=== PATIENT | female | born 1940 | race Caucasian/White ===

== ENCOUNTER 2016-04-14 14:42 | Emergency (ER) | payer MEDICARE ==
[~2016-04-14] VITALS: Ht 162.6 cm; Wt 60.0 kg
[~2016-04-14 14:42] MED LIST: ALEV220T14 PO; BACT2OIN TOP; CEPH500T PO; GALA4 PO; LISI-363 PO; MEVA40TA6 PO; NAME10TA PO; SERT50 PO; SYNT25TA PO
[2016-04-14 14:53] VITALS: BP 121/61; PULSE 74; RESP 16; TEMP 98.4; O2SAT 96
--- NOTE | 2016-04-14 15:26 | PD ---
HPI Chief Complaint: Fall Time Seen by Provider: 15:10 Travel History International Travel<30 days: No Contact w/Intl Traveler<30days: No Traveled to known affect area: No History of Present Illness HPI Patient is a 75-year-old female who was brought to emergency department for evaluation of a laceration to her right eyebrow. Patient sustained a mechanical fall at home prior to arrival. Daughter states that she was sitting on an ottoman that was broken, the ottoman gave out causing patient to fall forward striking her head on a wood floor. She was wearing glasses at the time and the frame of the glasses broke when she fell. She has a history of dementia and is a poor historian. Per daughter's report she had no loss of consciousness, however the daughter was in the other room when patient fell. Patient denies any pain at this time. Patient takes naproxen twice daily consistently. She is not on any other blood thinners. PFSH Past Medical History Anxiety: Yes Depression: Yes Cancer: Yes (SKIN) High Cholesterol: Yes Dementia: Yes Diabetes: No Diminished Hearing: No Glaucoma: No Hepatitis: No Hiatal Hernia: No Hypertension: Yes Respiratory: No Thyroid Disease: No Triglycerides - High: Yes ?: Not Menopausal: Yes Past Surgical History Eye Surgery: Yes (CATERACT) Genitourinary Surgery: Yes (BLADDER SUSPENSION) Gynecologic Surgery: Yes (HYSTERECTOMY) Hysterectomy: Yes Neurologic Surgery: Yes (ANTERIOR CERVICAL FUSION WITH PLATE) Pacemaker: No Other Surgery: Yes (LUMBAR LAMINECTOMY WITH FUSION SHAN AND CAGE) Family History Family Hypercholesterolemia: Yes Social History Alcohol Use: Yes (WINE RARELY) Tobacco Use: No Substance Use: No Allergies-Medications (Allergen,Severity, Reaction): Coded Allergies: No Known Allergies (Verified , 04/14/16) Reported Meds & Prescriptions Reported Meds & Active Scripts Active Reported Naproxen 250 Mg Tab 250 Mg PO BID Memantine 10 Mg Tab 10 Mg PO BID Lisinopril 20 Mg Tab 20 Mg PO BID Levothyroxine (Levothyroxine Sodium) 25 Mcg Tab 25 Mcg PO DAILY Galantamine (Galantamine Hydrobromide) 4 Mg Tab 4 Mg PO BID Sertraline (Sertraline HCl) 100 Mg Tab 100 Mg PO DAILY Lovastatin 40 Mg Tab 40 Mg PO HS Review of Systems Except as stated in HPI: all other systems reviewed are Neg Skin: Positive Other (laceration to right eyebrow) Physical Exam Narrative GENERAL: Well-developed, well-nourished, alert elderly female. Resting comfortably in no acute distress. SKIN: Warm and dry. HEAD: Atraumatic. Normocephalic. EYES: Right pupil is 2 mm left pupil is 1 mm, and reactive. No scleral icterus. No injection or drainage. Extraocular movements are intact. ENT: No nasal bleeding or discharge. Mucous membranes pink and moist. MOUTH: Mucous membranes moist, no lesions, tongue and gums appear normal. NECK: Trachea midline. No JVD. CARDIOVASCULAR: Regular rate and rhythm. No murmur appreciated. RESPIRATORY: No accessory muscle use. Clear to auscultation. Breath sounds equal bilaterally. GASTROINTESTINAL: Abdomen soft, non-tender, nondistended. Hepatic and splenic margins not palpable. MUSCULOSKELETAL: No obvious deformities. No clubbing. No cyanosis. No edema. NEUROLOGICAL: Awake and alert. No obvious cranial nerve deficits. Tongue deviates to the right. Motor grossly within normal limits. Normal speech. PSYCHIATRIC: Appropriate mood and affect; insight and judgment impaired. Data Data Last Documented VS Vital Signs Date Time Temp Pulse Resp B/P Pulse Ox O2 Delivery O2 Flow Rate FiO2 04/14/16 16:01 69 16 94/63 94 Room Air 04/14/16 14:[address] Brain W/O Iv Contrast(Rout) (04/14/16 ) Lidocaine 1% Inj (50 Ml) (Xylocaine 1% I (04/14/16 15:30) Act Partial Throm Time (Ptt) (04/14/16 15:17) Prothrombin Time / Inr (Pt) (04/14/16 15:17) Complete Blood Count With Diff (04/14/16 15:17) Basic Metabolic Panel (Bmp) (04/14/16 15:17) Iv Access Insert/Monitor (04/14/16 15:17) Labs Laboratory Tests Test 04/14/16 15:30 White Blood Count 7.6 TH/MM3 Red Blood Count 4.28 MIL/MM3 Hemoglobin 13.8 GM/DL Hematocrit 39.3 % Mean Corpuscular Volume 91.8 FL Mean Corpuscular Hemoglobin 32.1 PG Mean Corpuscular Hemoglobin 35.0 % Concent Red Cell Distribution Width 12.1 % Platelet Count 178 TH/MM3 Mean Platelet Volume 9.4 FL Neutrophils (%) (Auto) 71.0 % Lymphocytes (%) (Auto) 21.9 % Monocytes (%) (Auto) 4.4 % Eosinophils (%) (Auto) 1.5 % Basophils (%) (Auto) 1.2 % Neutrophils # (Auto) 5.4 TH/MM3 Lymphocytes # (Auto) 1.7 TH/MM3 Monocytes # (Auto) 0.3 TH/MM3 Eosinophils # (Auto) 0.1 TH/MM3 Basophils # (Auto) 0.1 TH/MM3 CBC Comment DIFF FINAL Differential Comment Prothrombin Time 10.7 SEC Prothromb Time International 1.0 RATIO Ratio Activated Partial 26.6 SEC Thromboplast Time Sodium Level 144 MEQ/L Potassium Level 3.8 MEQ/L Chloride Level 109 MEQ/L Carbon Dioxide Level 27.4 MEQ/L Anion Gap 8 MEQ/L Blood Urea Nitrogen 21 MG/DL Creatinine 0.92 MG/DL Estimat Glomerular Filtration 59 ML/MIN Rate Random Glucose 140 MG/DL Calcium Level 8.2 MG/DL MDM Medical Decision Making Medical Screen Exam Complete: Yes Emergency Medical Condition: Yes Interpretation(s) Laboratory Tests Test 04/14/16 15:30 White Blood Count 7.6 TH/MM3 Red Blood Count 4.28 MIL/MM3 Hemoglobin 13.8 GM/DL Hematocrit 39.3 % Mean Corpuscular Volume 91.8 FL Mean Corpuscular Hemoglobin 32.1 PG Mean Corpuscular Hemoglobin 35.0 % Concent Red Cell Distribution Width 12.1 % Platelet Count 178 TH/MM3 Mean Platelet Volume 9.4 FL Neutrophils (%) (Auto) 71.0 % Lymphocytes (%) (Auto) 21.9 % Monocytes (%) (Auto) 4.4 % Eosinophils (%) (Auto) 1.5 % Basophils (%) (Auto) 1.2 % Neutrophils # (Auto) 5.4 TH/MM3 Lymphocytes # (Auto) 1.7 TH/MM3 Monocytes # (Auto) 0.3 TH/MM3 Eosinophils # (Auto) 0.1 TH/MM3 Basophils # (Auto) 0.1 TH/MM3 CBC Comment DIFF FINAL Differential Comment Prothrombin Time 10.7 SEC Prothromb Time International 1.0 RATIO Ratio Activated Partial 26.6 SEC Thromboplast Time Sodium Level 144 MEQ/L Potassium Level 3.8 MEQ/L Chloride Level 109 MEQ/L Carbon Dioxide Level 27.4 MEQ/L Anion Gap 8 MEQ/L Blood Urea Nitrogen 21 MG/DL Creatinine 0.92 MG/DL Estimat Glomerular Filtration 59 ML/MIN Rate Random Glucose 140 MG/DL Calcium Level 8.2 MG/DL Last Impressions Head CT 04/14/16 0000 Signed Impressions: Service Date/Time: Thursday, April 14, 2016 15:44 - CONCLUSION: Normal examination for a patient of this age. Selvin Alcantar MD Vital Signs Date Time Temp Pulse Resp B/P Pulse Ox O2 Delivery O2 Flow Rate FiO2 04/14/16 14:53 98.4 74 16 121/61 96 Differential Diagnosis Hemorrhage versus contusion versus concussion versus laceration versus Narrative Course Patient is a 75-year-old male who presents emergency department for evaluation of a laceration to her right eyebrow that she sustained as result of a mechanical fall at home just prior to arrival. On exam patient's tongue was deviated to the right, her right pupil was also enlarged compared to the left. Patient no other neurological deficits. She does have a history of dementia and is a poor historian. CT scan of the brain was ordered to rule out acute hemorrhage. CT scan was negative. CBC, chemistry, coags reviewed and are unremarkable. Please see procedure report for laceration repair. Daughter was advised that sutures would need to come out in 7 days. They were educated on wound care. She was advised to come back to emergency department for any new or worsening symptoms. Additionally a advised follow up with primary doctor and neurologist as scheduled. They verbalized understanding of these instructions. Patient is stable for discharge. Procedures Procedure Narrative LACERATION LOCATION: Right eyebrow LENGTH: 1.5 x 1 cm NUMBER OF STITCHES/RAVI: 11 stitches REPAIR: The area of the laceration was prepped with Betadine and sterilely draped. The laceration was infiltrated with 1% lidocaine. The wound was copiously irrigated and explored without evidence of foreign body, tendon injury or neurovascular injury. The wound was closed using 4-0 Prolene. This was a 1 layer repair. A sterile dressing was applied. The patient was advised to keep the dressing clean and dry. Patient tolerated the procedure well. Diagnosis Primary Impression: Laceration of head Qualified Code: S01.81XA - Laceration of other part of head without foreign body, initial encounter Additional Impression: Fall Qualified Code: W19.XXXA - Fall, initial encounter Referrals: Primary Care Physician Patient Instructions: Care For Your Stitches (ED), General Instructions, Laceration (ED), Stitches Removal (DC) Additional Instructions: Follow-up with primary doctor Patient may wash her hair and her face as normal, keep stitches clean and dry, apply topical antibiotic ointment Give [id number] acetaminophen as needed and as directed for pain Return to emergency department immediately for any new or worsening symptoms Med/Other Pt SpecificInfo: No Change to Meds Disposition: 01 DISCHARGE HOME Condition: Stable Klaudia Pelayo Apr 14, 2016 15:26
[2016-04-14] MEDS ORDERED: LIDOCAINE HCL 1% 50 ML VIAL INFIL ONE (15:30)
[2016-04-14 15:33] LABS: AUTOMATED NEUTROPHIL # 5.4 TH/MM3 (1.8-7.7); BASOPHIL # 0.1 TH/MM3 (0-0.2); BASOPHIL % 1.2 % (0.0-2.0); EOSINOPHIL # 0.1 TH/MM3 (0-0.4); EOSINOPHIL % 1.5 % (0.0-4.0); HEMATOCRIT 39.3 % (35.0-46.0); HEMO FLAGS DIFF FINAL; LYMPH % 21.9 % (9.0-44.0); LYMPHOCYTE # 1.7 TH/MM3 (1.0-4.8); MEAN CELL VOLUME 91.8 FL (80.0-100.0); MEAN CORPUSCULAR HEMOGLOBIN 32.1 PG (27.0-34.0); MONO % 4.4 % (0.0-8.0); PLATELET COUNT 178 TH/MM3 (150-450); RED BLOOD COUNT 4.28 MIL/MM3 (4.00-5.30); RED CELL DISTRIBUTION WIDTH 12.1 % (11.6-17.2); WHITE BLOOD COUNT 7.6 TH/MM3 (4.0-11.0)
[2016-04-14] MEDS ORDERED: MEMA1TAB2 PO (15:38)
[2016-04-14] MEDS ORDERED: NAPR250T PO (15:38)
[2016-04-14] MEDS ORDERED: LISI-515 PO (15:38)
[2016-04-14] MEDS ORDERED: GALA4TAB PO (15:38)
[2016-04-14] MEDS ORDERED: SERT-129 PO (15:38)
[2016-04-14] MEDS ORDERED: LOVA40TA PO (15:38)
[2016-04-14] MEDS ORDERED: LEVO25TA4 PO (15:38)
[2016-04-14 15:47] LABS: POTASSIUM 3.8 MEQ/L (3.5-5.1)
[2016-04-14 15:50] LABS: BICARBONATE 27.4 MEQ/L (21.0-32.0)
[2016-04-14 15:51] LABS: APTT (PATIENT) 26.6 SEC (24.3-30.1); PROTHROMBIN TIME - PATIENT 10.7 SEC (9.8-11.6)
[2016-04-14 16:01] VITALS: BP 94/63; PULSE 69; RESP 16; O2SAT 94
--- NOTE | 2016-04-14 16:58 | RADHPO ---
EXAM DATE/TIME: 04/14/2016 15:44 [facility] COMPARISON: No previous studies available for comparison. INDICATIONS : Fall today, left supraorbital laceration. RADIATION DOSE: 62.70 CTDIvol (mGy) MEDICAL HISTORY : Hypertension. Dementia. SURGICAL HISTORY : Fusion, cervical. ENCOUNTER: Initial ACUITY: 1 day PAIN SCALE: 4/10 LOCATION: Left frontal head TECHNIQUE: Multiple contiguous axial images were obtained of the head. Using automated exposure control and adj ustment of the mA and/or kV according to patient size, radiation dose was kept as low as reasonably a chievable to obtain optimal diagnostic quality images. FINDINGS: CEREBRUM: The ventricles are normal for age. No evidence of midline shift, mass lesion, hemorrhage or acute in farction. No extra-axial fluid collections are seen. POSTERIOR FOSSA: The cerebellum and brainstem are intact. The 4th ventricle is midline. The cerebellopontine angle i s unremarkable. EXTRACRANIAL: The visualized portion of the orbits is intact. SKULL: The calvaria is intact. No evidence of skull fracture. CONCLUSION: Normal examination for a patient of this age. Selvin Alcantar MD on April 14, 2016 at 16:55 Board Certified Radiologist. This report was verified electronically.
== END 2016-04-14 17:48 | disposition home or self-care (01) ==
LOC: PHEFT 14:42
DX: S01.111A Laceration without foreign body of right eyelid and periocular area, initial encounter (principal); F03.90 Unspecified dementia, unspecified severity, without behavioral disturbance, psychotic disturbance, mood disturbance, and anxiety; E78.00 Pure hypercholesterolemia, unspecified; I10 Essential (primary) hypertension; W08.XXXA Fall from other furniture, initial encounter
CPT/HCPCS: 12011; 70450; 80048; 85025; 85610; 85730